=== PATIENT | female | born 1970 | race Hispanic/Latino ===

== ENCOUNTER 2017-07-29 01:15 | Emergency (ER) | payer OTHER ==
[2017-07-29] MEDS ORDERED: TETRACAINE HCL 0.5% 2ML OPTH ONE (01:37)
[2017-07-29] MEDS ORDERED: FLUORESCEIN SODIUM 0.6 MG/WRAP ONE (01:38)
[2017-07-29] MEDS ORDERED: NEO/BAC/POLY/HC OPTH OINT ONE (01:52)
[2017-07-29] MEDS ORDERED: NEOMYCIN/BAC/POLY OPTH 3.5GM ONE (01:59)
--- NOTE | 2017-07-29 02:03 | ER ---
Nurse's Notes [facility] Name: Marianna Sanches Age: 47 yrs Sex: Female : 1970 Arrival Date: 07/29/2017 Time: :19 Bed 25 Private MD: Zita Broussard K Diagnosis: Ocular pain, left eye;Injury of conjunctiva and corneal abrasion without foreign body Presentation: 07/29 01:24 Presenting complaint: Patient states: "I was driving and my contact got stuck in my ao upper eye." Patient states that is her right eye. Eye look irritated but no contact was visualize. Transition of care: patient was not received from another setting of care. Onset of symptoms was July 29, 2017 at 01:00. Initial Sepsis Screen: Does the patient meet any 2 criteria? No. Patient's initial sepsis screen is negative. Does the patient have a suspected source of infection? No. Patient's initial sepsis screen is negative. Care prior to arrival: None. 01:24 Method Of Arrival: Ambulatory ao 01:24 Acuity: BETI 4 ao Triage Assessment: 01:27 General: Appears in no apparent distress. uncomfortable, Behavior is calm, cooperative, ao appropriate for age, Smells of alcohol. Pain: Complains of pain in right eye. EENT: Eyes are tearing on inner aspect of conjuctiva of right eye. Neuro: Level of Consciousness is awake, alert, obeys commands, Oriented to person, place, time, situation, Appropriate for age Moves all extremities. Speech is normal, Facial symmetry appears normal, Pupils are PERRLA. Cardiovascular: Patient's skin is warm and dry. Respiratory: Airway is patent Respiratory effort is even, unlabored, Respiratory pattern is regular, symmetrical. GI: No signs and/or symptoms were reported involving the gastrointestinal system. Abdomen is non-distended. : No signs and/or symptoms were reported regarding the genitourinary system. Derm: No signs and/or symptoms reported regarding the dermatologic system. Musculoskeletal: No signs and/or symptoms reported regarding the musculoskeletal system. 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 - Social history:: Smoking status: Patient/guardian denies using tobacco, Patient uses alcohol, occasionally. Patient/guardian denies using street drugs. - Family history:: not pertinent. Screenin:28 Abuse screen: Denies threats or abuse. Denies injuries from another. Nutritional ao screening: No deficits noted. Tuberculosis screening: No symptoms or risk factors identified. Fall Risk None identified. Assessment: 01:40 General: See triage notes. ao 02:10 Reassessment: Dr Berumen looked around for the contact and non was found. Patient to ao be discharge home with pain medications antibiotics and a referral to Dr Johnson. 02:29 Reassessment: DC Instructions given to patient and mother. Patient understand the POC ao and to follow up with Dr Johnson. Vital Signs: 01:34 BP 133 / 84; Pulse 82; Resp 16; Temp 98.4(O); Pulse Ox 98% on R/A; Weight 77.11 kg (R); ao Height 5 ft. 3 in. (160.02 cm) (R); Pain 6/10; 01:34 Body Mass Index 30.11 (77.11 kg, 160.02 cm) ao ED Course: 01:19 Patient arrived in ED. es 01:19 Zita Broussard MD is Private Physician. es 01:24 Terry Duran, RN is Primary Nurse. ao 01:26 Triage completed. ao 01:27 Eitan Berumen MD is Attending Physician. oliver 01:27 Arm band placed on right wrist. Patient placed in an exam room, on a stretcher, on ao pulse oximetry, Patient notified of wait time. 01:28 Patient has correct armband on for positive identification. Pulse ox on. NIBP on. ao 02:01 Zita Broussard MD is Referral Physician. oliver 02:01 Adiel Johnson MD is Referral Physician. oliver 02:29 No provider procedures requiring assistance completed. Patient did not have IV access ao during this emergency room visit. Administered Medications: 01:20 Drug: Tetracaine Solution (0.5 %) 2 application Route: Topical; Site: right eye; ao 02:22 Follow up: Response: No adverse reaction ao 02:01 CANCELLED (Duplicate Order): ERYTHromycin Ointment 1 application Ophthalmic once oliver 02:10 Drug: [place] 10 mg-325 mg 1 tabs Route: PO; ao 02:22 Follow up: Response: No adverse reaction ao 02:22 Drug: Bacitracin-Polymyxin B Ointment 1 application Route: Ophthalmic; Site: right eye; ao 02:23 Follow up: Response: Medication administered at discharge. ao Outcome: 02:02 Discharge ordered by . [facility] 02:30 Discharged to home ambulatory. 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 Demonstrated understanding of instructions, follow-up care, medications, Prescriptions given X 2. 02:30 Patient left the ED. ao Signatures: Eitan Berumen MD MD cha Salyer, Edna es Ortiz, Alex, RN RN ao
--- NOTE | 2017-07-29 02:03 | EDPHYS ---
Physician Documentation [facility] Name: Marianna Sanches Age: 47 yrs Sex: Female : 1970 Arrival Date: 07/29/2017 Time: :19 Bed 25 Private MD: Zita Broussard K ED Physician Eitan Berumen HPI: 07/29 01:58 This 47 yrs old Female presents to ER via Ambulatory with complaints of oliver Contact stuck in eye. 01:58 The patient is experiencing foreign body sensation, pain, redness, The patient oliver sustained an abrasion, to the left eye. Onset: The symptoms/episode began/occurred just prior to arrival. Duration: the symptoms are continuous. Aggravated by blinking, closing eye, light, pressure, Alleviated by nothing. Associated signs and symptoms: Pertinent positives: None. Patient wears soft contacts. Severity of symptoms: At their worst the symptoms were moderate. The patient has not experienced similar symptoms in the past. 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 - Social history:: Smoking status: Patient/guardian denies using tobacco, Patient uses alcohol, occasionally. Patient/guardian denies using street drugs. - Family history:: not pertinent. ROS: 01:58 Constitutional: Negative for fever, chills, and weight loss, ENT: Negative for injury, oliver pain, and discharge, Neck: Negative for injury, pain, and swelling, Cardiovascular: Negative for chest pain, palpitations, and edema, Respiratory: Negative for shortness of breath, cough, wheezing, and pleuritic chest pain, Abdomen/GI: Negative for abdominal pain, nausea, vomiting, diarrhea, and constipation, Back: Negative for injury and pain, MS/Extremity: Negative for injury and deformity, Skin: Negative for injury, rash, and discoloration, Neuro: Negative for headache, weakness, numbness, tingling, and seizure, Psych: Negative for depression, anxiety, suicide ideation, homicidal ideation, and hallucinations, Allergy/Immunology: Negative for hives, rash, and allergies, Endocrine: Negative for neck swelling, polydipsia, polyuria, polyphagia, and marked weight changes, Hematologic/Lymphatic: Negative for swollen nodes, abnormal bleeding, and unusual bruising. 01:58 Eyes: Positive for pain, photophobia, redness, of the outer aspect of conjuctiva of left eye, iris of left eye and inner aspect of conjunctiva of left eye. Exam: 01:58 Constitutional: This is a well developed, well nourished patient who is awake, alert, oliver and in no acute distress. Head/Face: Normocephalic, atraumatic. ENT: Nares patent. No nasal discharge, no septal abnormalities noted. Tympanic membranes are normal and external auditory canals are clear. Oropharynx with no redness, swelling, or masses, exudates, or evidence of obstruction, uvula midline. Mucous membranes moist. Neck: Trachea midline, no thyromegaly or masses palpated, and no cervical lymphadenopathy. Supple, full range of motion without nuchal rigidity, or vertebral point tenderness. No Meningismus. Chest/axilla: Normal chest wall appearance and motion. Nontender with no deformity. No lesions are appreciated. Cardiovascular: Regular rate and rhythm with a normal S1 and S2. No gallops, murmurs, or rubs. Normal PMI, no JVD. No pulse deficits. Respiratory: Lungs have equal breath sounds bilaterally, clear to auscultation and percussion. No rales, rhonchi or wheezes noted. No increased work of breathing, no retractions or nasal flaring. Abdomen/GI: Soft, non-tender, with normal bowel sounds. No distension or tympany. No guarding or rebound. No evidence of tenderness throughout. Back: No spinal tenderness. No costovertebral tenderness. Full range of motion. Skin: Warm, dry with normal turgor. Normal color with no rashes, no lesions, and no evidence of cellulitis. MS/ Extremity: Pulses equal, no cyanosis. Neurovascular intact. Full, normal range of motion. Neuro: Awake and alert, GCS 15, oriented to person, place, time, and situation. Cranial nerves II-XII grossly intact. Motor strength 5/5 in all extremities. Sensory grossly intact. Cerebellar exam normal. Normal gait. Psych: Awake, alert, with orientation to person, place and time. Behavior, mood, and affect are within normal limits. 01:58 Eyes: Periorbital structures: appear normal, Pupils: no acute changes, equal, round, and reactive to light and accomodation, Extraocular movements: no acute changes, Conjunctiva: normal, Corneas: abrasion, that is moderate sized, foreign body, is not appreciated, a fluorescein strip employed to appreciate the findings, Sclera: injected, Anterior chamber: normal. 01:58 Eyes: Lids and lashes: appear normal, funduscopic exam reveals no obvious abnormalities, Nystagmus: is not appreciated. Vital Signs: 01:34 BP 133 / 84; Pulse 82; Resp 16; Temp 98.4(O); Pulse Ox 98% on R/A; Weight 77.11 kg (R); ao Height 5 ft. 3 in. (160.02 cm) (R); Pain 6/10; 01:34 Body Mass Index 30.11 (77.11 kg, 160.02 cm) ao MDM: 01:27 Patient medically screened. oliver Administered Medications: 01:20 Drug: Tetracaine Solution (0.5 %) 2 application Route: Topical; Site: right eye; ao 02:22 Follow up: Response: No adverse reaction ao 02:01 CANCELLED (Duplicate Order): ERYTHromycin Ointment 1 application Ophthalmic once oliver 02:10 Drug: [place] 10 mg-325 mg 1 tabs Route: PO; ao 02:22 Follow up: Response: No adverse reaction ao 02:22 Drug: Bacitracin-Polymyxin B Ointment 1 application Route: Ophthalmic; Site: right eye; ao 02:23 Follow up: Response: Medication administered at discharge. ao Disposition: 07/29/17 02:02 Discharged to Home. Impression: Ocular pain, left eye, Injury of conjunctiva and corneal abrasion without foreign body. - Condition is Stable. - Discharge Instructions: Corneal Abrasion, Corneal Abrasion, [id number]. - Prescriptions for Tylenol- Codeine #3 300-30 mg Oral Tablet - take 2 tablet by ORAL route every 6 hours As needed; 30 tablet. Bacitracin 500 unit/gram Ophthalmic Ointment - instill 0.5 inch by OPHTHALMIC route every 6 hours; 3.5 tube. - Medication Reconciliation Form, Thank You Letter, Antibiotic Education, Prescription Opioid Use form. - Follow up: Zita Broussard MD; When: 2 - 3 days; Reason: Recheck today's complaints, Continuance of care, Re-evaluation by your physician. Follow up: Adiel Johnson MD; When: 2 - 3 days; Reason: Recheck today's complaints, Re-evaluation by your physician. - Problem is new. - Symptoms have improved. Signatures: Eitan Berumen MD MD cha Ortiz, Alex RN RN ao Corrections: (The following items were deleted from the chart) 02:01 01:56 ERYTHromycin Ointment 1 application Ophthalmic once ordered. oliver boyd
[2017-07-29] MEDS ORDERED: HYDROCODONE/APAP 10/325 TAB ONE (02:05)
== END 2017-07-29 02:30 | disposition home or self-care (01) ==
LOC: ER 01:15
DX: S05.02XA Injury of conjunctiva and corneal abrasion without foreign body, left eye, initial encounter (principal); X58.XXXA Exposure to other specified factors, initial encounter; Y93.9 Activity, unspecified; Y92.9 Unspecified place or not applicable
CPT/HCPCS: 99283